=== PATIENT | male | born 1985 | race Caucasian/White ===

== ENCOUNTER 2019-08-22 16:35 | Emergency (ER) | payer OTHER ==
[~2019-08-22] VITALS: Ht 170.2 cm; Wt 99.8 kg
[~2019-08-22 16:35] MED LIST: FLEXERIL PO; HYDROCODONE-AP1 EAC6 PO; IBUPROFEN 800800 M1 PO; PHENERGAN 25 MG25 M1 PO
[2019-08-22] MEDS ORDERED: MEDROLDOSEPACK PO (17:45)
[2019-08-22] MEDS ORDERED: TRAMADOL 50 MG50 MG PO (17:45)
[2019-08-22 18:20] VITALS: BP 146/67
== END 2019-08-22 18:21 | disposition home or self-care (01) ==
LOC: M.ERS 16:35
DX: M25.532 Pain in left wrist (principal); F17.210 Nicotine dependence, cigarettes, uncomplicated